=== PATIENT | female | born 1950 | race Hispanic/Latino ===

== ENCOUNTER 2025-03-01 09:29 | Emergency (ER) | payer MEDICARE ==
[~2025-03-01] VITALS: Ht 154.9 cm; Wt 74.8 kg
[2025-03-01 11:20] VITALS: PULSE 58; RESP 16; TEMP 98.3; O2SAT 95
== END 2025-03-01 11:27 | disposition home or self-care (01) ==
LOC: ER 09:42
DX: S52.591A Other fractures of lower end of right radius, initial encounter for closed fracture (principal); S52.611A Displaced fracture of right ulna styloid process, initial encounter for closed fracture; W01.0XXA Fall on same level from slipping, tripping and stumbling without subsequent striking against object, initial encounter; Y93.01 Activity, walking, marching and hiking; Y92.89 Other specified places as the place of occurrence of the external cause; E78.5 Hyperlipidemia, unspecified
CPT/HCPCS: 99283